=== PATIENT | male | born 1950 | race Caucasian/White ===

== ENCOUNTER 2020-12-04 13:16 | Emergency (ER) | payer MEDICARE, OTHER, SELFPAY ==
[2020-12-04] VITALS (14 sets, daily range): BP systolic 140–203; BP diastolic 91–113; PULSE 61–71; RESP 15–23; TEMP 36.4–36.6; O2SAT 98–99; BMI 21.9
--- NOTE | 2020-12-04 13:32 | PC.NURSE ---
fsbs 103
--- NOTE | 2020-12-04 13:34 | CT_ITS ---
PROCEDURE: CT HEAD/BRAIN WO CON CLINICAL INDICATION: AMS Altered mental status, altered level of consciousness, confusion, disorientation COMPARISON: No exams were available for comparison TECHNIQUE: Axial images obtained. All CT scans at the facility use one or more dose reduction, viz: automated exposure control, ma/kV adjustment per patient size (including targeted exams where dose is matched to indication, i.e. head), or iterative reconstruction technique. FINDINGS: No midline shift, mass effect, intracranial hemorrhage, hydrocephalus, or extra-axial fluid collection is evident. There is generalized atrophy with low-density changes in the periventricular region consistent with ischemic gliotic change from microvascular disease. There are scattered areas of coarse calcification noted in the leslie in the right paracentral region, superior cerebellar peduncle on the left, inferior leslie on the right and inferior cerebellar peduncle on the right.. There is a small nonspecific calcifications within the thalami on both sides. The calvarium has an unremarkable appearance. No mastoid effusion. No sinus air-fluid level. IMPRESSION: 1. No acute intracranial findings. 2. Coarse calcification in the leslie and cerebellar peduncle region. This is of questionable clinical significance and could be response to old infection or old infarction. Follow-up suggested to confirm stability. Dictated by: Alo Licona MD 12/04/2020 14:02 Alo Licona MD in [facility] 12/04/2020 14:02
--- NOTE | 2020-12-04 13:35 | PC.NURSE ---
pt to CT
[2020-12-04 13:39] LABS: POC Glucose,Bedside 103 (70-110)
[2020-12-04 13:40] LABS: Basophils # 0.1 K/mm3 (0-0.2); Eosinophils # 0.2 K/mm3 (0.0-0.4); Eosinophils % 3.5 % (0.1-12.0); Hematocrit 37.2 % (42.0-52.0); Hemoglobin 12.3 g/dL (14.1-18.0); Lymphocytes # 1.2 K/mm3 (0.7-4.5); Lymphocytes % 21.8 % (10-50); Mean Corpuscular HGB Conc 33.2 g/dL (31.8-35.4); Mean Corpuscular Volume 90.6 fl (80-94); Mean Platelet Volume 9.2 fl (7.4-10.4); Monocytes # 0.4 K/mm3 (0.1-1.0); Monocytes % 7.3 % (1.7-9.3); Neutrophils # 3.5 K/mm3 (1.8-7.8); Neutrophils % 66.4 % (37.0-80.0); Platelet Count 207 K/mm3 (142-424); Red Blood Count 4.11 M/mm3 (4.60-6.20); Red Cell Distribution Width 13.9 % (11.5-17.5); White Blood Count 5.3 K/mm3 (4.8-10.8)
[2020-12-04 13:46] LABS: Alanine Aminotransferase 18 U/L (12-78); Albumin Level 3.7 g/dl (3.5-5.0); Albumin/Globulin Ratio 1.5 (1.1-1.8); Alkaline Phosphatase 118 U/L (38-126); Aspartate Amino Transferase 20 U/L (17-59); Bilirubin,Total 0.6 mg/dl (0.2-1.3); Blood Urea Nitrogen 26 mg/dl (9-20); Calcium 8.5 mg/dl (8.4-10.2); Carbon Dioxide 29 mmol/L (22.0-30.0); Chloride 99 mmol/L (98-107); Creatinine Clearance Estimated 19 mL/min (50-200); Estimated Glomerular Filt Rate 19 ml/min (>60); GFR (African American) 23 ML/MIN (>60); Globulin 2.4 g/dL (1.3-3.2); Glucose 101 mg/dl (74-100); Sodium 134 mmol/L (136-145); Total Protein,Serum 6.1 g/dl (6.3-8.2)
--- NOTE | 2020-12-04 13:48 | PC.NURSE ---
pt return from ct
--- NOTE | 2020-12-04 13:50 | ECG_ITS ---
APPROVED REPORT Exam: Resting ECG HR:64 bpm ECG Measurements Heart Rate 64 AXES SD 180 P 51 QRSd 86 QRS -2 QT 428 T 69 QTc 441 Conclusion Normal sinus rhythm Normal ECG Electronically signed by : Christophe Velasco, 12/04/2020 21:34:34
--- NOTE | 2020-12-04 13:53 | PC.NURSE ---
per pt was given 2 clonidine during dialysis due to his high bp
--- NOTE | 2020-12-04 13:55 | PC.NURSE ---
pt unable to urinate at this time, is a dialysis pt
[2020-12-04 16:40] LABS: POC Glucose,Bedside 74 (70-110)
--- NOTE | 2020-12-04 16:45 | PC.NURSE ---
contacting [facility] at this time
[2020-12-04 16:51] LABS: Coronavirus 19, PCR Not Detected (NotDetected); Influenza A, PCR Not Detected (NotDetected); Influenza B, PCR Not Detected (NotDetected)
--- NOTE | 2020-12-04 17:04 | PC.NURSE ---
talking to [facility]
--- NOTE | 2020-12-04 17:11 | [facility].EDGENADL ---
ED Disposition Clinical Impression: Hypertensive emergency Altered mental status Qualifiers: Altered mental status type: somnolence Qualified Code(s): R40.0 - Somnolence Disposition: Xfer Other Condition on Discharge: Good Instructions: DI for Altered Mental Status Referrals: Provider,Referral, [Primary Care Provider] - - Critical Care Critical Care Time: No Attestation: On 12/04/20, the high probability of a clinically significant, sudden or life threatening deterioration of the following system(s) required my full and direct attention, intervention and personal management. The time I documented below is in addition to time spent performing reported procedures but includes the following listed in this critical care notation. Medical Decision Making - Medical Records Medical records reviewed: Yes: I reviewed the patient's medical records. - Aron Inquiry Pt receiving controlled substance: No Vital Signs: 12/04/20 13:17 12/04/20 13:48 12/04/20 14:00 Temperature 97.6 F Temperature Source Oral Pulse Rate 65 63 Pulse Rate [Apical] 71 Respiratory Rate 16 23 16 Blood Pressure 156/97 H 162/93 H Blood Pressure [Left Arm] 140/110 H Blood Pressure Mean 124 Blood Pressure Mean [Left Arm] 120 Blood Pressure Source [Left Arm] Automatic Cuff Blood Pressure Position [Left Arm] Sitting 02 Sat by Pulse Oximetry 98 99 99 Oxygen Delivery Method Room Air 12/04/20 14:30 12/04/20 15:00 12/04/20 15:30 Temperature Temperature Source Pulse Rate 61 65 61 Pulse Rate [Apical] Respiratory Rate 16 18 16 Blood Pressure 176/94 H 168/96 H 186/101 H Blood Pressure [Left Arm] Blood Pressure Mean 121 120 129 Blood Pressure Mean [Left Arm] Blood Pressure Source [Left Arm] Blood Pressure Position [Left Arm] 02 Sat by Pulse Oximetry 99 98 98 Oxygen Delivery Method 12/04/20 16:00 12/04/20 16:30 Temperature Temperature Source Pulse Rate 61 61 Pulse Rate [Apical] Respiratory Rate 16 16 Blood Pressure 199/106 H 188/113 H Blood Pressure [Left Arm] Blood Pressure Mean 137 138 Blood Pressure Mean [Left Arm] Blood Pressure Source [Left Arm] Blood Pressure Position [Left Arm] 02 Sat by Pulse Oximetry 99 98 Oxygen Delivery Method - Lab Data Lab Results 12/04/20 13:26: POC Glucose 103 12/04/20 13:30: WBC 5.3, RBC 4.11 L, Hgb 12.3 L, Hct 37.2 L, MCV 90.6, MCH 30.0, MCHC 33.2, RDW 13.9, Plt Count 207, MPV 9.2, Neut % (Auto) 66.4, Lymph % (Auto) 21.8, Gosper % (Auto) 7.3, Eos % (Auto) 3.5, Baso % (Auto) 1.0, Neut # (Auto) 3.5, Lymph # (Auto) 1.2, Gosper # (Auto) 0.4, Eos # (Auto) 0.2, Baso # (Auto) 0.1 12/04/20 13:30: Sodium 134 L, Potassium 5.0, Chloride 99, Carbon Dioxide 29, Anion Gap 11.0, BUN 26 H, Creatinine 3.20 H, Estimated Creat Clear 19, Estimated GFR 19 L*, Est GFR ( Amer) 23 L, Glucose 101 H, Calcium 8.5, Total Bilirubin 0.6, AST 20, ALT 18, Alkaline Phosphatase 118, Total Protein 6.1 L, Albumin 3.7, Globulin 2.4, Albumin/Globulin Ratio 1.5 12/04/20 16:32: POC Glucose 74 Result diagrams: 12/04/20 13:30 12/04/20 13:30 Orders (Tests/Meds): ED MEDICATIONS Generic Name Dose Route Start Last Admin Trade Name Freq PRN Reason Stop Dose Admin Nitroglycerin/Dextrose 250 mls @ 1.5 mls/hr 12/04/20 17:15 Nitroglycerin 50mg/250ml D5w IV 01/03/21 17:14 .Q24H JEFFERY Protocol 5 MCG/MIN Discontinued Medications Generic Name Dose Route Start Last Admin Trade Name Freq PRN Reason Stop Dose Admin Hydralazine HCl 25 mg 12/04/20 21:00 Hydralazine Hcl 25mg Tablet PO 01/03/21 20:59 TID JEFFERY Hydralazine HCl 25 mg 12/04/20 16:47 12/04/20 17:06 Hydralazine Hcl 25mg Tablet PO 12/04/20 16:48 25 mg ONCE ONE Administration ORDERS Category Date Time Status Rapid PCR Covid and Flu A/B Stat Lab 12/04/20 16:35 Received UA [Urinalysis and Microscopic] Stat Lab 12/04/20 13:35 Ordered Medical Decision Narr
--- NOTE | 2020-12-04 18:02 | PC.NURSE ---
REPORT CALLED TO [facility]
--- NOTE | 2020-12-04 18:37 | PC.NURSE ---
[facility]
== END 2020-12-04 18:45 | disposition other institution (70) ==
PROVIDERS: Emergency Provider Emergency Medicine
DX: I16.1 Hypertensive emergency (principal); R41.82 Altered mental status, unspecified; Z20.822 Contact with and (suspected) exposure to COVID-19
CPT/HCPCS: 70450; 80053; 82962; 85025; 93005; 96365; 99284; U0003